=== PATIENT | male | born 2000 | race African-American/Black ===

== ENCOUNTER 2019-03-18 10:35 | Emergency (ER) | payer OTHER ==
[2019-03-18 10:50] VITALS: BP 150/82
[2019-03-18] MEDS ORDERED: PROPARACAINE 0.5% OPHTH DROPS 15 ML EACHEYE STA (11:38)
--- NOTE | 2019-03-18 12:38 | ED Physician Documentation ---
PD HPI OPHTHO - Stated complaint Stated Complaint: OBJECT IN EYE - Chief complaint Chief Complaint: Heent - History obtained from History obtained from: Patient - History of Present Illness Timing - onset: Today Timing - duration: Hours (3) Timing - details: Abrupt onset Pain level max: 1 Pain level now: 0 Location: Left Quality / character: Aching Associated symptoms: Redness, Swelling, Tearing Contributing factors: Other (states hit in the eye with a dry eraser) Review of Systems Constitutional: denies: Fever, Chills PD PAST MEDICAL HISTORY - Past Medical History Past Medical History: No - Past Surgical History Past Surgical History: No - Present Medications Home Medications: Ambulatory Orders Medication Instructions Recorded Confirmed Polymyxin B/Trimeth Ophth Drop 1 drops LEFTEYE Q3H 7 Days #1 03/18/19 [Polytrim Ophth Drops] bottle - Allergies Allergies/Adverse Reactions: Allergies Allergy/AdvReac Type Severity Reaction Status Date / Time No Known Drug Allergies Allergy Verified 03/18/19 10:51 PD ED PE NORMAL - Vitals Vital signs reviewed: Yes - General General: Alert and oriented X 3, No acute distress - HEENT HEENT: Moist mucous membranes, Other (L eye - mild conjunctival injection. mild clear tearing. mild fluoroscein uptake. ) - Neck Neck: Supple, no meningeal sign - Derm Derm: Warm and dry - Neuro Neuro: Alert and oriented X 3 - Psych Psych: Normal mood, Normal affect Results - Vitals Vitals: Vital Signs - 24 hr 03/18/19 10:45 Temperature 36.1 C L Heart Rate 78 Respiratory 16 Rate Blood Pressure 150/82 H O2 Saturation 100 Oxygen O2 Source Room air PD MEDICAL DECISION MAKING - ED course Complexity details: considered differential, d/w patient ED course: 19-year-old male with a left eye corneal abrasion. Will place on Polytrim oph thalmic. We will follow-up with PCP for further care. No retained foreign body. Eyelids everted. Patient counseled regarding signs and symptoms for which I believe and urgent re-evaluation would be necessary. Patient with good understanding of and agreement to plan and is comfortable going home at this time This document was made in part using voice recognition software. While efforts are made to proofread this document, sound alike and grammatical errors may occur. Departure - Departure Disposition: 01 Home, Self Care Clinical Impression: Corneal abrasion, left Qualifiers: Encounter type: initial encounter Qualified Code(s): S05.02XA - Injury of conjunctiva and corneal abrasion without foreign body, left eye, initial encounter Condition: Good Instructions: ED Eye Injury Corneal Abrasion Follow-Up: CARLINE Morales [Provider Group] - Within 1 week Prescriptions: Polymyxin B/Trimeth Ophth Drop [Polytrim Ophth Drops] 1 drops LEFTEYE Q3H 7 Days #1 bottle Comments: Use the antibiotic eyedrops as prescribed. Follow-up with your doctor for recheck within 3 to 4 days. Return if you worsen. Discharge Date/Time: 03/18/19 12:42
== END 2019-03-18 12:42 | disposition home or self-care (01) ==
LOC: ED 10:35
DX: S05.02XA Injury of conjunctiva and corneal abrasion without foreign body, left eye, initial encounter (principal); W22.8XXA Striking against or struck by other objects, initial encounter
CPT/HCPCS: 99282; 99283; J3490

== ENCOUNTER 2020-05-06 19:13 | Emergency (ER) | payer SELFPAY ==
[2020-05-06] MEDS ORDERED: PROPARACAINE 0.5% OPHTH DROPS 15 ML EACHEYE STA (19:22)
[2020-05-06] MEDS ORDERED: POLYMYXIN B/TRIMETH OPHTH DROPS LEFTEYE STA (19:32)
--- NOTE | 2020-05-06 19:38 | ED Physician Documentation ---
History of Present Illness - Stated complaint Stated Complaint: LEFT EYE INJURY - Chief complaint Chief Complaint: Trauma Hd/Nk - History obtained from History obtained from: Patient - History of Present Illness Timing: Yesterday Pain level max: 8 Pain level now: 8 - Additonal information Additional information: L eye pain s/p being hit with softball. Patient states is worse with trying to open his eye. He feels like there is something stuck to his eyelid when he tries to open his eye. Worse with opening his eye, better with closing his eye. Review of Systems Constitutional: denies: Fever, Chills Eyes: reports: Photophobia, Irritation. denies: Loss of vision, Decreased vision, Discharge Throat: denies: Sore throat Cardiac: denies: Chest pain / pressure, Palpitations Respiratory: denies: Dyspnea, Cough, Wheezing GI: denies: Nausea, Vomiting, Diarrhea Musculoskeletal: denies: Neck pain, Back pain Neurologic: denies: Focal weakness, Numbness, Confused, Altered mental status, LOC PD PAST MEDICAL HISTORY - Past Medical History Past Medical History: No - Past Surgical History Past Surgical History: No - Present Medications Home Medications: Ambulatory Orders Medication Instructions Recorded Confirmed Polymyxin B/Trimeth Ophth Drop 1 drops LEFTEYE Q3H 7 Days #1 03/18/19 [Polytrim Ophth Drops] bottle HYDROcod/ACETAM 5/325 [[place] 5/325] 1 - 2 ea PO Q6H PRN #14 tablet 05/06/20 Polymyxin B/Trimeth Ophth Drop 1 drops LEFTEYE Q3H 7 Days #1 05/06/20 [Polytrim Ophth Drops] bottle - Allergies Allergies/Adverse Reactions: Allergies Allergy/AdvReac Type Severity Reaction Status Date / Time No Known Drug Allergies Allergy Verified 05/06/20 19:19 - Social History Does the pt smoke?: No Smoking Status: Never smoker PD ED PE NORMAL - Vitals Vital signs reviewed: Yes - General General: Alert and oriented X 3, No acute distress - HEENT HEENT: Moist mucous membranes, Other - Derm Derm: Warm and dry - Neuro Neuro: Alert and oriented X 3 - Psych Psych: Normal mood, Normal affect - Free text exam Free text exam: No periorbital ecchymosis or tenderness. Proparacaine was administered and no hyphema is visible. No traumatic iritis. Fluorescein was applied and there is a central corneal abrasion over the left eye. Eyelids were everted. No foreign bodies. Results - Vitals Vitals: Vital Signs - 24 hr 05/06/20 05/06/20 19:16 19:46 Temperature 36.7 C Heart Rate 81 69 Respiratory 17 14 Rate Blood Pressure 151/92 H 143/80 H O2 Saturation 99 100 Oxygen O2 Source Room air PD MEDICAL DECISION MAKING - ED course Complexity details: considered differential, d/w patient ED course: Patient with a left eye corneal abrasion. Will place on ophthalmic antibiotics and have him follow-up with ophthalmology. No hyphema. No traumatic iritis. No evidence of retinal detachment or globe rupture. Patient counseled regarding signs and symptoms for which I believe and urgent re-evaluation would be necessary. Patient with good understanding of and agreement to plan and is comfortable going home at this time This document was made in part using voice recognition software. While efforts are made to proofread this document, sound alike and grammatical errors may occur. Departure - Departure Disposition: 01 Home, Self Care Clinical Impression: Corneal abrasion, left Qualifiers: Encounter type: initial encounter Qualified Code(s): S05.02XA - Injury of conjunctiva and corneal abrasion without foreign body, left eye, initial encounter Condition: Good Instructions: ED Eye Injury Corneal Abrasion Follow-Up: your,doctor on Saturday [Other] Prescriptions: HYDROcod/ACETAM 5/325 [[place] 5/325] 1 - 2 ea PO Q6H PRN #14 tablet PRN Reason: Pain Polymyxin B/Trimeth Ophth Drop [Polytrim Ophth Drops] 1 drops LEFTEYE Q3H 7 Days #1 bottle Comments: Use the eyedrops as prescribed. Return if you worsen. You should be rechecked with ophthalmology on Saturday. Artificial tears may help as well, the gel type may be more lubricating for your eye. Cool compresses may help as well. Do not drink alcohol or drive while on narcotic pain medicine. Note that many narcotic pain relievers also contain tylenol/acetaminophen. Please ensure that your total dose of acetaminophen from all sources does not exceed 3 grams (3000mg) per day. You may constipated on this medication, take a stool softener such as "Colace" twice a day while you are on it. Also recommend a [id number] laxative such as senna or MiraLAX any day that you do not have a bowel movement. If you received narcotic pain medication in the emergency department, do not drive or operate machinery for the next 24 hours. Discharge Date/Time: 05/06/20 19:47
[2020-05-06 19:47] VITALS: BP 143/80
== END 2020-05-06 19:47 | disposition home or self-care (01) ==
LOC: ED 19:13
DX: S05.02XA Injury of conjunctiva and corneal abrasion without foreign body, left eye, initial encounter (principal); W21.07XA Struck by softball, initial encounter
CPT/HCPCS: 99282; 99284; A9270; J3490